=== PATIENT | female | born 2000 | race Caucasian/White ===

== ENCOUNTER 2021-11-17 20:30 | Outpatient (CLI) | payer SELFPAY ==
[2021-11-17 20:47] VITALS: BMI 35.8
[2021-11-17 20:48] VITALS: PULSE 120; O2SAT 96
[2021-11-17 20:50] VITALS: BP 130/80; PULSE 111
[2021-11-17 20:55] VITALS: TEMP 36.9
--- NOTE | 2021-11-19 11:45 | OB.TRI.NOTE ---
HPI - General HPI Narrative SAMINA GONZALEZ, is a 21 F @ 34.3 weeks who presents co contractions PFSH PFSH Home Medications albuterol 90 mcg INHALATION 11/17/21 [History Last Taken Unknown] [id number] [] tab PO 11/17/21 [History Last Taken Unknown] promethazine 11/17/21 [History Last Taken Unknown] Allergy/AdvReac Type Severity Reaction Status Date / Time azithromycin Allergy Hives Verified 11/17/21 20:51 NST FHR Rate Baby A Baseline: 140 Variability:: Moderate Accelerations:: 15 x 15 Decelerations:: None NST Reactive:: Yes FHR Category:: Category I Uterine Activity:: 2-6 Assessment & Plan (1) contractions: PLAN: @ 34.3 weeks- contractions- not in labor dc home
== END 2021-11-17 21:48 | disposition home or self-care (01) ==
LOC: WPOUT 20:41 → WP 20:41
PROVIDERS: Visit Provider Obstetrics & Gynecology
DX: O47.03 False labor before 37 completed weeks of gestation, third trimester (principal); Z3A.34 34 weeks gestation of pregnancy
CPT/HCPCS: 59025; 59050; 99218; G0378

== ENCOUNTER 2021-12-24 23:05 | Outpatient (CLI) | payer MEDICAID, SELFPAY ==
[2021-12-24 23:25] VITALS: PULSE 105; O2SAT 98
[2021-12-24 23:28] VITALS: BP 139/86; PULSE 94
[2021-12-24 23:32] VITALS: BMI 36.8
[2021-12-24 23:40] VITALS: TEMP 36.8; O2SAT 97
[2021-12-24 23:46] VITALS: BP 134/84; PULSE 97
[2021-12-24 23:58] VITALS: BP 134/78; PULSE 93
[2021-12-25 00:20] LABS: ROM Internal Control Test YES-OK TO RESULT pt. (Internal QC); ROM Patient Test Negative (Negative)
--- NOTE | 2021-12-25 07:32 | OB.TRI.HP_ITS ---
HPI - General HPI Narrative SAMINA GONZALEZ, is a 21 F @ 39.5 weeks who presents r/o SROM and labor PFSH PFSH Home Medications albuterol 90 mcg INHALATION 11/17/21 [History Last Taken Unknown] [id number] [] 1 tab PO DAILY 11/17/21 [History Last Taken 12/24/21] promethazine 11/17/21 [History Last Taken Unknown] Allergy/AdvReac Type Severity Reaction Status Date / Time azithromycin Allergy Hives Verified 11/17/21 20:51 NST FHR Rate Baby A Baseline: 130 Variability:: Moderate Accelerations:: 15 x 15 Decelerations:: None NST Reactive:: Yes FHR Category:: Category I Uterine Activity:: q5-7 Assessment & Plan (1) 39 weeks gestation of : (2) Previous delivery affecting : PLAN: 21yo @ 39.5 weeks- h/o C.S here to rule out labor- false labor pt verbalized requesting - apparently receives care in [place] at OB office- will follow up with OB VE / per Nursing tx home false labor
== END 2021-12-25 00:50 | disposition home or self-care (01) ==
LOC: WPOUT 23:14 → WP 23:14
PROVIDERS: Visit Provider Obstetrics & Gynecology
DX: O47.1 False labor at or after 37 completed weeks of gestation (principal); Z3A.39 39 weeks gestation of pregnancy
CPT/HCPCS: 59025; 59050; 84112; 99218; G0378